=== PATIENT | male | born 1960 | race Caucasian/White ===

== ENCOUNTER 2017-02-03 17:35 | Emergency (ER) | payer MEDICARE, OTHER ==
[~2017-02-03] VITALS: Ht 175.3 cm; Wt 59.0 kg
[~2017-02-03 17:35] MED LIST: ACCUTES19; B12-1CHW CHEW; BLOO1MIS29; CEPH-460 PO; METF1000 PO; OMEP40CA2 PO; PERI8.6T PO; PRAV20TA PO
[2017-02-03 17:37] VITALS: BP 124/58; PULSE 112; RESP 12; TEMP 97.8; O2SAT 94
[2017-02-03] MEDS ORDERED: TETANUS/DIPHTHERIA TOXOID ADULT 0.5 ML VIAL IM ONE (17:45)
--- NOTE | 2017-02-03 17:45 | PD ---
HPI . possible laceration a few minutes ago Chief Complaint: Laceration/Skin Injury Time Seen by Provider: 17:44 Travel History International Travel<30 days: No Contact w/Intl Traveler<30days: No Traveled to known affect area: No History of Present Illness HPI 57-year-old male here with complaints of possible laceration. Patient indicates he cut himself on a piece of glass while going through a junk drawer. He does not recall the date of his last tetanus. He has no other complaints. There is no bleeding at this point. He did not clean it off to look at it. He just came in for evaluation. [facility] Social History Alcohol Use: No Tobacco Use: Yes (1ppd) Substance Use: No Allergies-Medications (Allergen,Severity, Reaction): Coded Allergies: No Known Allergies (Verified , 11/12/16) Reported Meds & Prescriptions Reported Meds & Active Scripts Active Omeprazole 40 Mg Cap 40 Mg PO DAILY Keflex (Cephalexin) 500 Mg Cap 500 Mg PO Q8H Accu-Chek Strips Shahla Plus (Blood Glucose Test Strips) 1 Jes Jes 1 Strips .ROUTE DIRECTED Accu-Chek Shahla Glucose Monitor (Device) 1 Mis Mis 1 Kit .ROUTE DIRECTED Metformin (Metformin HCl) 1,000 Mg Tab 1,000 Mg PO BIDPC With meals [id number] (Methylcobalamin) 1 Mg Chew 1 Mg CHEW DAILY Yumiko-Colace (Sennosides-Docusate Sodium) 8.6-50 Mg Tab 2 Tab PO HS PRN Reported Pravachol (Pravastatin) 20 Mg Tab 20 Mg PO HS Review of Systems General / Constitutional: No: Fever Eyes: No: Visual changes HENT: No: Headaches Cardiovascular: No: Chest Pain or Discomfort Respiratory: No: Shortness of Breath Gastrointestinal: No: Abdominal Pain Genitourinary: No: Dysuria Musculoskeletal: No: Pain Skin: Positive Other (small cut ot right ring finger ), No Rash Neurologic: No: Weakness Psychiatric: No: Depression Endocrine: No: Polydipsia Hematologic/Lymphatic: No: Easy Bruising Physical Exam Narrative GENERAL: AAO x 3, no acute distress, Well-nourished, well-developed patient. SKIN: Warm and dry. No visible rashes or bruising. small 2 mm cut very superficial (paper cut like) HEAD: Normocephalic and atraumatic. EYES: No scleral icterus. No injection or drainage. ENT: No nasal drainage noted. Mucous membranes pink. Airway patent. NECK: Supple, trachea midline. No JVD. CARDIOVASCULAR: Regular rate and rhythm without murmurs, gallops, or rubs. HR on exam 100 RESPIRATORY: Breath sounds equal bilaterally. No accessory muscle use. No rhonchi or rales. GASTROINTESTINAL: visual inspection EXTREMITIES: No cyanosis or edema. BACK: No obvious deformity. NEURO: CN II-12 intact, PSYCH: AAO x 3, normal affect. Data Data Last Documented VS Vital Signs Date Time Temp Pulse Resp B/P Pulse Ox O2 Delivery O2 Flow Rate FiO2 02/03/17 17:37 97.8 112 12 124/58 94 Room Air [facility] Medical Decision Making Medical Screen Exam Complete: Yes Emergency Medical Condition: Yes Medical Record Reviewed: Yes Differential Diagnosis superficial laceration, abrasion, skin tear Narrative Course 57-year-old male here with a very superficial cuts to his right index ring finger. The bleeding has subsided. We've cleaned the area and applied a Band-Aid. Tetanus administered. Patient tolerated without incident. Diagnosis Primary Impression: Abrasion of skin Patient Instructions: General Instructions Additional Instructions: Keep area clean and dry. Watch for signs of infection: fever, redness, swelling, warmth, pus or drainage , red streaks around the cut, and increased pain from the area. If you received a tetanus shot, you may experience tenderness at the injection site. This is normal. Disposition: 01 DISCHARGE HOME Condition: Stable Kathleen Farah Feb 03, 2017 17:45
== END 2017-02-03 18:39 | disposition home or self-care (01) ==
LOC: NEPK 17:35
DX: S60.414A Abrasion of right ring finger, initial encounter (principal); F17.200 Nicotine dependence, unspecified, uncomplicated; Z23 Encounter for immunization; W25.XXXA Contact with sharp glass, initial encounter
CPT/HCPCS: 90471; 90714